=== PATIENT | male | born 1950 | race Caucasian/White ===

== ENCOUNTER 2018-07-13 16:03 | Emergency (ER) | payer BC, MEDICAID ==
[2018-07-13 16:24] VITALS: BP 123/59
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
--- NOTE | 2018-07-13 17:33 | RAD ---
HISTORY: knee pain and instability for 4 days COMPARISONS: October 24, 2010 VIEWS: 4, Frontal, lateral, axial, and oblique views of the right knee FINDINGS: BONE DENSITY: Normal. BONES: The patient is status post right knee arthroplasty. There is no hardware failure or osteolysis. JOINTS: The patient is status post right knee arthroplasty. ALIGNMENT: There is no dislocation. SOFT TISSUES: Unremarkable. OTHER FINDINGS: None. IMPRESSION: STATUS POST RIGHT KNEE ARTHROPLASTY. NO ACUTE OSSEOUS INJURY. IF SYMPTOMS PERSIST, RECOMMEND REPEAT IMAGING.
== END 2018-07-13 18:05 | disposition home or self-care (01) ==
LOC: UCEAST 16:03
DX: M25.561 Pain in right knee (principal); Z96.651 Presence of right artificial knee joint
CPT/HCPCS: 99201; G0463